=== PATIENT | female | born 1940 | race Caucasian/White ===

== ENCOUNTER → 2020-08-04 | Outpatient (CLI) | payer OTHER, MEDICARE ==
[~2020-08-04] MED LIST: AMBIEN 10 MG TA10 MG PO; ASPIRIN325 PO; BENICAR HCT 201 EACH PO; CIPRO500 MG PO; ESTRACE1 MG PO; FISH OIL 1,0001 EAC5 PO; FLAGYL500 MG PO; KONSYL0.52 GM PO; LIPITOR 20 MG T20 M1 PO; LISINOPRIL-HCT1 EAC1 PO; LOSARTAN POTAS100 MG PO; LUTEIN6 M1 PO; NORCO 5-325 TA1 EACH PO; OMEPRAZOLE; OS-CAL 500+D C1 EACH PO; PAROXETINE HCL20 MG PO; PREMARIN0.9 MG PO; PRILOSEC 20 MG20 MG PO; VITAMIN E 400I400 I1 PO; VITAMINC500 PO; ZOCOR40 MG PO
== END ==
LOC: LAB 10:06
PROVIDERS: ATTEND Specialist
DX: Z01.812 Encounter for preprocedural laboratory examination (principal); Z20.828 Contact with and (suspected) exposure to other viral communicable diseases

== ENCOUNTER → 2020-08-07 | Outpatient (CLI) | payer OTHER, MEDICARE ==
[~2020-08-07] VITALS: Ht 162.6 cm; Wt 81.2 kg
--- NOTE | 2020-08-07 11:28 | P ---
[facility] [address] [place] [address] PROCEDURE REPORT Name: CASE,ABDIFATAH ORDONEZ Room #: REG [facility] Jackie.#: [id number] Admission: 08/07/20 Attend Phys: Ash Bowling MD Discharge: Date of : 42 Report #: [id number] THIS REPORT FOR: cc: Monika Doll MD, Michelle R. MD Thesing, John A. MD ~ CC: Ash Doll MD DATE OF SERVICE: 08/07/2020 OUTPATIENT COLONOSCOPY REPORT BRIEF HISTORY: The patient is a 80-year-old woman with a history of colon adenomas, for high risk screening colonoscopy. PREOPERATIVE DIAGNOSIS: High risk screening colonoscopy. POSTOPERATIVE DIAGNOSES: 1. Diminutive polyps x 3. 2. Moderate sigmoid diverticulosis coli. MEDICATIONS: Deep sedation with propofol per anesthesia. SPECIMENS: 1. Diminutive cecal polyp. 2. Diminutive midtransverse colon polyp. 3. Diminutive polyp at 20 cm. ESTIMATED BLOOD LOSS: 3 mL. PROCEDURE: Colonoscopy to cecum and terminal ileum with biopsy. FINDINGS: Prior to propofol sedation, procedure of colonoscopy discussed with the patient, as well as potential risks and its complications. She indicates she understands and desires to proceed. DESCRIPTION OF PROCEDURE: With the patient in the left lateral decubitus position, digital examination was completed, which revealed no abnormalities. Subsequently, the Olympus video colonoscope was introduced into the rectum, advanced under direct vision to the cecum. Done with minimal difficulty. The cecum was identified by the ileocecal valve and the appendiceal orifice. I was able to visualize the distal segment of the terminal ileum, which was inspected and noted to be unremarkable. At that point, the scope was slowly withdrawn and careful circumferential views were obtained. Upon slow withdrawal of the scope, [facility] [address] [place] [address] PROCEDURE REPORT Name: CASE,ABDIFATAH ORDONEZ Room #: REG CHENTE Alvarado#: [id number] Admission: 08/07/20 Attend Phys: Ash Bowling MD Discharge: Date of : 42 Report #: [id number] the prep was good. The mucosa was within normal limits, normal vascular pattern, and normal light reflex. As we withdrew the scope, she was found to have a diminutive polyp in the cecum, which was removed with biopsy forceps. The scope was further withdrawn and in the transverse colon, another diminutive polyp was seen and removed with biopsy forceps. The mucosa was otherwise normal as we withdrew the scope. At the sigmoid colon, there was noted to be moderately severe sigmoid diverticular disease without endoscopic evidence of diverticulitis. In addition, in the very distal sigmoid at 20 cm, another diminutive polyp was seen and removed with biopsy forceps. The scope was withdrawn. The patient tolerated the procedure well. CONDITION OF THE PATIENT UPON DISCHARGE: Following procedure, the patient was drowsy, aroused, conversant, and will be discharged to home when fully ambulatory. INSTRUCTIONS TO THE PATIENT AND FAMILY AT THE TIME OF DISCHARGE: We will follow up on the pathology. If all 3 are adenomas, I suggest she return in 3 years for high risk screening colonoscopy. If 1 or 2, consider 5 years, but I would base that on her overall health status in 5 years from now. If none are adenomas, no further surveillance is likely to be benefitting to this patient. Withdrawal time from the cecum was 10 minutes 50 seconds. She will return to the care of Dr. Monika Doll, return to see me as needed. <ELECTRONICALLY SIGNED> By: Ash Bowling MD 08/07/20 [id number] Ash Bowling MD /nt
--- NOTE | 2020-08-08 16:06 | PATH ---
[facility] [address] [place] [address] PATHOLOGY RPT PROCEDURE Name: CASE,ABDIFATAH ORDONEZ Room #: REG CHENTE Mejia.#: [id number] Admission: 08/07/20 Date of : 42 Discharge: Report #: [id number] Path Case #: [id number] [facility] Accession Number: [id number] . 01 Material submitted: . PART A: cecum - POLYP AT CECUM PART B: colon - POLYP AT TRANSVERSE COLON. Modifiers: transverse PART C: colon - POLYP AT 20CM . 01 Clinical history: . HX OF POLYPS . 02 Diagnosis: A. Polyp, at cecum, endoscopic biopsy: - Tubular adenoma. - Negative for high-grade dysplasia. . B. Polyp, at transverse colon, endoscopic biopsy: - Tubular adenoma. - Negative for high-grade dysplasia. . C. Polyp, at 20 cm, endoscopic biopsy: - Hyperplastic polyp. - Negative for dysplasia. (IUV:nicola; 08/08/2020) QMS 08/08/2020 1330 Local . 02 Electronically signed: . Darlin Sheth MD, Pathologist NPI- [id number] . 01 Gross description: . A. The specimen is received in formalin, labeled "Abdifatah Case, polyp at cecum". Received is a segment of pale centeno soft tissue measuring 0.4 cm in maximum dimensions. The specimen is submitted entirely in cassette A1. . B. The specimen is received in formalin, labeled "Abdifatah Case, polyp at transverse colon". Received are three segments of pale centeno soft tissue ranging in size from 0.2 to 0.3 cm in maximum dimensions. The specimen is submitted entirely in cassette B1. . C. The specimen is received in formalin, labeled "Abdifatah Case, polyp at 20 cm". Received is a segment of pale centeno soft tissue measuring 0.3 cm in maximum dimensions. The specimen is submitted entirely in cassette C1. (CAA; 08/07/2020) QAC/QAC 08/07/2020 1739 [facility] . [address] [place] [address] PATHOLOGY RPT PROCEDURE Name: CASEABDIFATAH Room #: REG CHENTE Knight.Chelsea.#: [id number] Admission: 08/07/20 Date of : 42 Discharge: Report #: [id number] Path Case #: [id number] Pathologist provided ICD-10: D12.0, D12.3, K63.5 . 02 CPT . 073872, 100258, 927098 Specimen Comment: A courtesy copy of this report has been sent to [phone] Specimen Comment: [phone] Specimen Comment: Report sent to / DR ROMANO Performed at: [address], [place] [id number] MD Alfred Dallas MD Phone: [phone] Performed at: [address] [id number] MD Darlin Sheth MD Phone: [phone]
== END | disposition home or self-care (01) ==
LOC: GI 06:59
PROVIDERS: ATTEND Specialist
DX: Z12.11 Encounter for screening for malignant neoplasm of colon (principal); Z86.010 Personal history of colon polyps; D12.0 Benign neoplasm of cecum; D12.3 Benign neoplasm of transverse colon; K57.30 Diverticulosis of large intestine without perforation or abscess without bleeding; I10 Essential (primary) hypertension; E78.5 Hyperlipidemia, unspecified; F32.9 Major depressive disorder, single episode, unspecified; K21.9 Gastro-esophageal reflux disease without esophagitis; Z87.19 Personal history of other diseases of the digestive system; Z90.710 Acquired absence of both cervix and uterus; Z90.49 Acquired absence of other specified parts of digestive tract; Z98.890 Other specified postprocedural states; Z79.899 Other long term (current) drug therapy; Z88.2 Allergy status to sulfonamides; Z79.82 Long term (current) use of aspirin
CPT/HCPCS: 62110; 62900